=== PATIENT | female | born 1970 | race Two or more races ===

== ENCOUNTER 2018-08-04 21:11 | Inpatient (IN) | payer OTHER ==
[~2018-08-04] VITALS: Ht 160 cm; Wt 88.9 kg
[2018-08-04 21:00] VITALS: BP 142/87
--- NOTE | 2018-08-04 21:00 | NUR ---
RN ADMITTING NOTES Admitted patient from [facility], via [place] with 2 disease case manager rn. Patient is awake, alert and oriented. ambulatory with steady gait. skin check done with intact skin. Patient complaining of headache, was medicated with Morphine at [facility], ineffective per patient. patient's comfort ensured. will f/up. needs anticipated and met. oriented to unit protocols. safety and comfort ensured. call light in reach. paged MD for admitting orders.
[2018-08-04] MEDS ORDERED: LISI40TA4 PO (21:25)
[2018-08-04] MEDS ORDERED: ONDANSETRON HCL/PF 4 MG/2 ML VIAL IVP PRN (22:30)
[2018-08-04] MEDS ORDERED: MAG HYDROX/AL HYDROX/SIMETH 30 ML UDC PO PRN (22:30)
[2018-08-04] MEDS ORDERED: Z GUARD REMEDY 2 OZ OINT TP PRN (22:30)
[2018-08-04] MEDS ORDERED: MAGNESIUM HYDROXIDE 30 ML UDC PO PRN (22:30)
[2018-08-04] MEDS ORDERED: ZOLPIDEM TARTRATE 5 MG TABLET PO PRN (22:30)
[2018-08-04] MEDS: IV NS 0.9% 1,000 ML IV PRN (23:22)
[2018-08-04] MEDS: HYDROCODONE/APAP 10/325MG 1 EA TABLET PO PRN (23:24)
[2018-08-05 04:00] VITALS: BP 149/87
--- NOTE | 2018-08-05 06:00 | NUR ---
RN CLOSING NOTES PATIENT WITH NO ACUTE DISTRESS AND CHANGE IN CONDITION OVERNIGHT. IVF ORDERED. KEPT ON DROPLET PRECAUTIONS FOR INFLUENZA A. NEEDS ANTICIPATED AND MET. CALL LIGHT IN REACH. WILL ENDORSE ACCORDINGLY.
[2018-08-05 07:10] LABS: BASOPHILS % (AUTO) 0.5 % (0.0-2.0); EOSINOPHILS % (AUTO) 1.8 % (0.0-6.0); HEMATOCRIT 36 % (33-45); HEMOGLOBIN 11.8 g/dL (11.5-14.8); LYMPHOCYTES # (AUTO) 1.1 /CMM (0.8-4.8); LYMPHOCYTES % (AUTO) 27.7 % (20.0-44.0); MEAN CORPUSCULAR HGB CONC 33 g/dl (31.0-36.0); MEAN CORPUSCULAR VOLUME 89 fL (82-100); MONOCYTES # (AUTO) 0.6 /CMM (0.1-1.30); MONOCYTES % (AUTO) 16.2 % (2.0-12.0); NEUTROPHILS # (AUTO) 2.2 /CMM (1.8-8.9); NEUTROPHILS % (AUTO) 53.8 % (43.0-81.0); PLATELET COUNT (AUTO) 143 /CMM (150-450); RED BLOOD CELL COUNT(AUTO) 3.99 MIL/uL (4.0-5.2)
[2018-08-05 07:51] LABS: THYROID STIMULATING HORMONE 2.023 uIU/mL (0.358-3.74)
[2018-08-05 08:00] VITALS: BP 164/86
[2018-08-05 08:04] LABS: CALCIUM, SERUM 7.7 mg/dL (8.5-10.1); CREATININE 0.7 mg/dL (0.6-1.3); MAGNESIUM 1.8 mg/dL (1.8-2.4); PHOSPHORUS 3.9 mg/dL (2.5-4.9); POTASSIUM 3.9 mmol/L (3.5-5.1)
[2018-08-05] MEDS: HYDROCODONE/APAP 10/325MG 1 EA TABLET PO PRN ×2 (08:18→15:29)
[2018-08-05] MEDS: PANTOPRAZOLE 40 MG TABLET.DR PO SCH (08:18)
[2018-08-05] MEDS: OSELTAMIVIR PHOSPHATE 75 MG CAPSULE PO SCH ×2 (08:18→17:23)
[2018-08-05 10:11] LABS: BAND % (MANUAL) 2 % (0.0-5.0); LYMPHOCYTES % (MANUAL) 33 % (16-48); MONOCYTES % (MANUAL) 14 % (0-11.0); NEUTROPHILS % (MANUAL) 51 (42-76)
[2018-08-05] MEDS: hydrALAZINE HCL 25 MG TABLET PO SCH ×4 (11:24→23:53)
[2018-08-05] MEDS: CEFTRIAXONE 1 G in IV D5W 50 ML IV SCH (15:28)
[2018-08-05] MEDS: LISINOPRIL (20MG) 20 MG TABLET PO SCH (15:29)
[2018-08-05] MEDS: IV NS 0.9% 1,000 ML IV PRN (15:30)
[2018-08-05 16:00] VITALS: BP_SYST 136; BP_SYST 165; BP_DIAS 73; BP_DIAS 88
[2018-08-05 20:00] VITALS: BP 151/92
--- NOTE | 2018-08-05 20:00 | NUR ---
RN OPENING NOTE: RECEIVED PATIENT IN BED, AWAKE, ALERT AND VERBALLY RESPONSIVE. RESPIRATION EVEN AND UNLABORED SATURATING 97% ON ROOM AIR. DENIED ANY PAIN AT THIS TIME. BED ALARMED AND LOCKED AT ALL TIMES. ON DROPLET PRECAUTION FOR INFLUENZA A. HOB ELEVATED AT 35 DEGREE. (R) AC IV SITE NOTED PATENT AND INTACT INFUSING NS @ 75 ML/HR. CALL LIGHT WITHIN REACH. NEEDS ANTICIPATED.
[2018-08-06 04:00] VITALS: BP 166/99
[2018-08-06] MEDS: HYDROCODONE/APAP 10/325MG 1 EA TABLET PO PRN (04:10)
[2018-08-06] MEDS: hydrALAZINE HCL 25 MG TABLET PO SCH ×4 (05:43→23:31)
[2018-08-06 06:15] LABS: BASOPHILS % (AUTO) 0.7 % (0.0-2.0); EOSINOPHILS % (AUTO) 2.9 % (0.0-6.0); HEMATOCRIT 39 % (33-45); LYMPHOCYTES # (AUTO) 1.1 /CMM (0.8-4.8); LYMPHOCYTES % (AUTO) 30.6 % (20.0-44.0); MEAN CORPUSCULAR HGB CONC 33 g/dl (31.0-36.0); MEAN CORPUSCULAR VOLUME 89 fL (82-100); MONOCYTES # (AUTO) 0.5 /CMM (0.1-1.30); MONOCYTES % (AUTO) 14.7 % (2.0-12.0); NEUTROPHILS # (AUTO) 1.8 /CMM (1.8-8.9); NEUTROPHILS % (AUTO) 51.1 % (43.0-81.0); PLATELET COUNT (AUTO) 144 /CMM (150-450); RED BLOOD CELL COUNT(AUTO) 4.39 MIL/uL (4.0-5.2); WHITE BLOOD COUNT (AUTO) 3.6 K/uL (4.3-11.0)
[2018-08-06 06:27] LABS: CALCIUM, SERUM 8.3 mg/dL (8.5-10.1); CREATININE 0.6 mg/dL (0.6-1.3); PHOSPHORUS 4.2 mg/dL (2.5-4.9); POTASSIUM 3.5 mmol/L (3.5-5.1)
--- NOTE | 2018-08-06 07:00 | NUR ---
MS RN OPENING NOTES PATIENT AWAKE, ALERT AND ORIENTED X3. AMBULATORY WITH STEADY GAIT. ON ROOM AIR, NO SOB NOTED. RR EVEN AND UNLABORED. SKIN ASSESSMENT DONE, INTACT SKIN. COMPLAINING OF HEADACHE 11/27. IV SITE LEFT AC 20G, RIGHT AC 20G WITH 0.9 NS RUNNING AT 75ML/HR, TOLERATING WELL. IV SITE CLEAN, DRY, AND INTACT. CALL LIGHT WITHIN REACH. BED LOCKED AND IN LOWEST POSITION. SIDE RAILS UP. WILL CONTINUE TO MONITOR THROUGHOUT SHIFT.
--- NOTE | 2018-08-06 07:33 | NUR ---
RN CLOSING NOTE: PATIENT REMAINED ON STABLE CONDITION. REPORT GIVEN TO AM SHIFT NURSE FOR CONTINUITY OF CARE.
[2018-08-06] MEDS: PANTOPRAZOLE 40 MG TABLET.DR PO SCH (07:50)
[2018-08-06] MEDS: IV NS 0.9% 1,000 ML IV PRN ×2 (07:50→23:33)
[2018-08-06 08:00] VITALS: BP 155/96
[2018-08-06] MEDS: LISINOPRIL (20MG) 20 MG TABLET PO SCH (09:41)
[2018-08-06] MEDS: OSELTAMIVIR PHOSPHATE 75 MG CAPSULE PO SCH ×2 (09:41→16:22)
[2018-08-06] MEDS: IBUPROFEN 400 MG TABLET PO PRN ×2 (12:32→19:48)
[2018-08-06] MEDS: CEFTRIAXONE 1 G in IV D5W 50 ML IV SCH (15:58)
[2018-08-06 16:00] VITALS: BP_SYST 135; BP_SYST 143; BP_DIAS 75; BP_DIAS 94
[2018-08-06] MEDS: ACETAMINOPHEN 325 MG TABLET PO PRN (16:22)
--- NOTE | 2018-08-06 19:25 | NUR ---
MS RN CLOSING NOTES PATIENT AWAKE, ALERT AND ORIENTED X3. AMBULATORY WITH STEADY GAIT. ON ROOM AIR, NO SOB NOTED. RR EVEN AND UNLABORED. SKIN ASSESSMENT DONE, INTACT SKIN. COMPLAINING OF HEADACHE 11/27. IV SITE LEFT AC 20G, RIGHT AC 20G WITH 0.9 NS RUNNING AT 75ML/HR, TOLERATING WELL. IV SITE CLEAN, DRY, AND INTACT. CALL LIGHT WITHIN REACH. BED LOCKED AND IN LOWEST POSITION. SIDE RAILS UP. ENDORSED TO VOTING MACHINE REPAIRER NURSE FOR TRISH.
[2018-08-06 20:00] VITALS: BP 146/95
--- NOTE | 2018-08-06 20:00 | NUR ---
RN INITIAL NOTES PATIENT AWAKE, ALERT AND ORIENTED X3. AMBULATORY WITH STEADY GAIT. ON ROOM AIR, NO SOB NOTED. IV SITE LEFT AC 20G, RIGHT AC 20G WITH 0.9 NS RUNNING AT 75ML/HR, TOLERATING WELL. IV SITE CLEAN, DRY, AND INTACT. CALL LIGHT WITHIN REACH. BED LOCKED AND IN LOWEST POSITION. SIDE RAILS UP. WILL CONTINUE TO MONITOR.
[2018-08-06] MEDS: HYDROCODONE/APAP 5/325MG 1 EACH TABLET PO PRN (23:37)
[2018-08-07 04:00] VITALS: BP 136/79
[2018-08-07] MEDS: hydrALAZINE HCL 25 MG TABLET PO SCH ×3 (05:24→17:10)
[2018-08-07] MEDS: IBUPROFEN 400 MG TABLET PO PRN (05:24)
--- NOTE | 2018-08-07 06:28 | NUR ---
RN CLOSING NOTES PATIENT AWAKE, ALERT AND ORIENTED X3. ON ROOM AIR, NO SOB NOTED. COMPLAINING OF HEADACHE /, PAIN MEDS GIVEN ORDERED . IV SITE LEFT AC 20G S/L, RIGHT AC 20G WITH 0.9 NS RUNNING AT 75ML/HR, TOLERATING WELL. IV SITE CLEAN, DRY, AND INTACT. CALL LIGHT WITHIN REACH. BED LOCKED AND IN LOWEST POSITION. SIDE RAILS UP. WILL ENDORSED TO AM SHIFT NURSE FOR TRISH.
--- NOTE | 2018-08-07 07:20 | NUR ---
RN MS OPENING NOTES RECEIVED BEDSIDE REPORT FROM NOC. PATIENT ASLEEP ABLE TO AWAKE WITH VOICE AND TOUCH. NIUEAN SPEAKING A/O X4 . NO SIGNS OR SYMPTOMS OF RESPIRATORY DISTRESS OR ACUTE PAIN. C/O SINUS PAIN DUE TO SINUS CONGESTION. AMBULATORY IN ROOM . ON CONTACT ISOLATION. IVF RUNNING IN RAC NS @ 75ML/HR LAC SALINE LOCK. SAFETY PRECAUTIONS IN PLACE BED IN LOW POSITION CALL LIGHT WITHIN REACH WILL CONT TO MONITOR
[2018-08-07] MEDS: PANTOPRAZOLE 40 MG TABLET.DR PO SCH (07:37)
[2018-08-07 08:00] VITALS: BP_SYST 122; BP_SYST 126; BP_DIAS 67; BP_DIAS 81
[2018-08-07] MEDS: LISINOPRIL (20MG) 20 MG TABLET PO SCH (08:43)
[2018-08-07] MEDS: OSELTAMIVIR PHOSPHATE 75 MG CAPSULE PO SCH ×2 (08:43→17:10)
[2018-08-07] MEDS: ACETAMINOPHEN 325 MG TABLET PO PRN (08:47)
--- NOTE | 2018-08-07 12:15 | NUR ---
RN MS NOTES MRSA SWAB DONE IN (L) NOSTRIL. SPECIMEN SENT TO LAB
[2018-08-07] MEDS: HYDROCODONE/APAP 10/325MG 1 EA TABLET PO PRN (12:59)
[2018-08-07] MEDS: IV NS 0.9% 1,000 ML IV PRN (15:46)
[2018-08-07 16:00] VITALS: BP_SYST 138; BP_SYST 145; BP_DIAS 80; BP_DIAS 96
[2018-08-07 16:10] VITALS: BP 145/96
[2018-08-07] MEDS: CEFTRIAXONE 1 G in IV D5W 50 ML IV SCH (17:35)
--- NOTE | 2018-08-07 19:34 | NUR ---
RN MS NOTES PATIENT ASLEEP ABLE TO AWAKE WITH VOICE AND TOUCH. ECUADOREAN SPEAKING SOME BERMUDIAN A/O X4 . NO SIGNS OR SYMPTOMS OF RESPIRATORY DISTRESS OR ACUTE PAIN. C/O SINUS PAIN DUE TO SINUS CONGESTION. AMBULATORY IN ROOM . ON CONTACT ISOLATION. IVF RUNNING IN RAC NS @ 75ML/HR LAC SALINE LOCK. SAFETY PRECAUTIONS IN PLACE BED IN LOW POSITION CALL LIGHT WITHIN REACH TRISH
--- NOTE | 2018-08-07 19:40 | NUR ---
RN NOTES RECEIVED PATIENT AWAKE, SITTING IN BED, ON ROOM AIR AND TOLERATED WELL. PATIENT IS ALERT AND ORIENTED X4, VERBALIZING HEADACHE AT THIS TIME, WILL ADDRESS ACCORDINGLY. IV ACCESS ON LEFT AC INTACT AND RIGHT AC PATENT AND INTACT WITH ONGOING IVF INFUSING WELL. PLAN OF CARE DISCUSSED WITH THE PATIENT AND VERBALIZED UNDERSTANDING. SAFETY MEASURES AND FALL PRECAUTION OBSERVED WITH CALL LIGHT WITHIN REACH. WILL CONTINUE TO MONITOR PATIENT.
[2018-08-07 20:00] VITALS: BP_SYST 138; BP_SYST 146; BP_DIAS 84; BP_DIAS 94
[2018-08-07] MEDS: HYDROCODONE/APAP 5/325MG 1 EACH TABLET PO PRN (20:30)
--- NOTE | 2018-08-07 20:30 | NUR ---
RN NOTES PATIENT COMPLAINS OF HEADACHE 12/27, AND PATIENT PREFERS TO TAKE NORCO. NORCO 5/325 MG TAB GIVEN PO AND TOLERATED WELL. WILL CONTINUE TO MONITOR PATIENT.
[2018-08-08] VITALS: BP 127/83
[2018-08-08 04:00] VITALS: BP 123/74
[2018-08-08] MEDS: IV NS 0.9% 1,000 ML IV PRN (05:07)
[2018-08-08] MEDS: hydrALAZINE HCL 25 MG TABLET PO SCH ×4 (05:32→18:00)
--- NOTE | 2018-08-08 05:50 | NUR ---
RN Notes Patient slept well overnight, vital signs stable, afebrile. Still verbalizing headache, managed with norco. Current diet tolerated well, Denies nausea and vomiting. No significant change in condition noted. All needs attended with call light with in reach. Safety measures and fall precaution observed. Will endorse to morning RN for continuity of care.
[2018-08-08] MEDS: IBUPROFEN 400 MG TABLET PO PRN ×2 (06:47→16:03)
--- NOTE | 2018-08-08 06:47 | NUR ---
RN Notes Patient complains of headache, motrin 400mg tab given PO and tolerated well. Will continue to monitor pt.
[2018-08-08 06:59] LABS: BASOPHILS % (AUTO) 0.6 % (0.0-2.0); EOSINOPHILS % (AUTO) 8.1 % (0.0-6.0); HEMATOCRIT 38 % (33-45); HEMOGLOBIN 12.9 g/dL (11.5-14.8); LYMPHOCYTES # (AUTO) 1.7 /CMM (0.8-4.8); LYMPHOCYTES % (AUTO) 42.4 % (20.0-44.0); MEAN CORPUSCULAR HGB CONC 34 g/dl (31.0-36.0); MEAN CORPUSCULAR VOLUME 87 fL (82-100); MONOCYTES # (AUTO) 0.5 /CMM (0.1-1.30); NEUTROPHILS # (AUTO) 1.6 /CMM (1.8-8.9); NEUTROPHILS % (AUTO) 37.9 % (43.0-81.0); PLATELET COUNT (AUTO) 144 /CMM (150-450); RED BLOOD CELL COUNT(AUTO) 4.37 MIL/uL (4.0-5.2); WHITE BLOOD COUNT (AUTO) 4.1 K/uL (4.3-11.0)
[2018-08-08 07:21] LABS: CREATININE 0.6 mg/dL (0.6-1.3); PHOSPHORUS 4.8 mg/dL (2.5-4.9); POTASSIUM 3.9 mmol/L (3.5-5.1)
[2018-08-08 08:00] VITALS: BP_SYST 130; BP_SYST 132; BP_DIAS 52; BP_DIAS 85
[2018-08-08] MEDS: OSELTAMIVIR PHOSPHATE 75 MG CAPSULE PO SCH ×2 (09:42→16:03)
[2018-08-08] MEDS: PANTOPRAZOLE 40 MG TABLET.DR PO SCH (09:42)
[2018-08-08] MEDS: LISINOPRIL (20MG) 20 MG TABLET PO SCH (09:42)
[2018-08-08] MEDS: HYDROCODONE/APAP 10/325MG 1 EA TABLET PO PRN (09:50)
[2018-08-08 12:00] VITALS: BP 123/80
[2018-08-08] MEDS ORDERED: IBUP-1953 PO (15:17)
[2018-08-08] MEDS ORDERED: OSEL75CA PO (15:17)
[2018-08-08] MEDS ORDERED: AMOX-430 PO (15:19)
[2018-08-08] MEDS ORDERED: HYDR-4076 PO (15:23)
[2018-08-08] MEDS ORDERED: LISI20TA61 PO (15:23)
[2018-08-08 16:00] VITALS: BP 133/95
[2018-08-08] MEDS: CEFTRIAXONE 1 G in IV D5W 50 ML IV SCH (16:03)
[2018-08-08 18:00] VITALS: BP 133/95
--- NOTE | 2018-08-08 18:38 | NUR ---
RN NOTE PT DISCHARGED HOME WITH [facility]IA OWN TRANSPORTATION IN STABLE CONDITION, EXIT CARE DONE, DISCHARGE INSTRUCTIONS PROVIDED TEACHING DONE, PT VERBALIZED UNDERSTANDING, IV SITES REMOVED, ID BAND REMOVED, PRESCRIPTION GIVEN, PAPERS SIGNED, BELONGINGS LIST SIGNED AND BELONGINGS PROVIDED TO PATIENT. SKIN IS INTACT.
== END 2018-08-08 18:39 | disposition home or self-care (01) | DRG 720 ==
LOC: MEDSG1 21:11
PROVIDERS: ADMIT Hospitalist; ATTEND Registered Nurse
DX: A41.9 Sepsis, unspecified organism (principal); E66.01 Morbid (severe) obesity due to excess calories; E87.1 Hypo-osmolality and hyponatremia; R65.20 Severe sepsis without septic shock; N39.0 Urinary tract infection, site not specified; J10.1 Influenza due to other identified influenza virus with other respiratory manifestations; I10 Essential (primary) hypertension; Z68.34 Body mass index [BMI] 34.0-34.9, adult; D25.9 Leiomyoma of uterus, unspecified; G43.909 Migraine, unspecified, not intractable, without status migrainosus; J01.00 Acute maxillary sinusitis, unspecified; J01.30 Acute sphenoidal sinusitis, unspecified
CPT/HCPCS: 36415; 70450-TC; 80048-TC; 80061-TC; 83735-TC; 84100-TC; 84443-TC; 84702-TC; 84703-TC; 85025-TC; 87081-TC; G0378; J0696; J7030; J7060